=== PATIENT | female | born 1950 | race Two or more races ===

== ENCOUNTER 2018-07-15 07:24 | Outpatient (CLI) | payer OTHER | END 2018-07-15 15:15 | disposition home or self-care (01) | LOC: TOM 07:24 | DX: R10.31 Right lower quadrant pain (principal) ==

== ENCOUNTER 2021-05-21 09:47 | Outpatient (CLI) | payer OTHER | END 2021-05-21 09:53 | disposition home or self-care (01) | LOC: SONOGRAMA 09:47 | PROVIDERS: ATTEND Pathology Anatomic Pathology & Clinical Pathology | DX: E04.2 Nontoxic multinodular goiter (principal) ==